=== PATIENT | female | born 1985 | race African-American/Black ===

== ENCOUNTER 2016-09-30 16:17 | Emergency (ER) | payer MEDICAID ==
[~2016-09-30] VITALS: Ht 162.6 cm; Wt 82.0 kg
[2016-09-30 18:01] VITALS: BP 113/73
== END 2016-09-30 18:38 | disposition home or self-care (01) ==
LOC: ER 16:18
DX: M25.512 Pain in left shoulder (principal); M54.2 Cervicalgia; J45.909 Unspecified asthma, uncomplicated; F17.210 Nicotine dependence, cigarettes, uncomplicated; V89.2XXA Person injured in unspecified motor-vehicle accident, traffic, initial encounter; Y93.9 Activity, unspecified; Y92.9 Unspecified place or not applicable; Y99.8 Other external cause status
CPT/HCPCS: 99283